=== PATIENT | female | born 1945 | race Caucasian/White ===

== ENCOUNTER 2022-02-11 17:29 | Emergency (ER) | payer BC ==
[2022-02-11] MEDS ORDERED: Diphtheria,Pertussis(Acell),Tetanus Vaccine 0.5 ML Syringe IM ONE (19:20)
== END 2022-02-11 19:35 | disposition home or self-care (01) ==
LOC: FB.ED 17:29
DX: S06.0X0A Concussion without loss of consciousness, initial encounter (principal); S01.21XA Laceration without foreign body of nose, initial encounter; Z88.2 Allergy status to sulfonamides; Z23 Encounter for immunization; W01.0XXA Fall on same level from slipping, tripping and stumbling without subsequent striking against object, initial encounter
CPT/HCPCS: 12013; 70450; 90471; 90715; 99283-25

== ENCOUNTER 2022-04-28 10:06 | Emergency (ER) | payer MEDICARE ==
[2022-04-28] MEDS ORDERED: Losartan 50 MG Tab PO ONE (10:27)
[2022-04-28] MEDS ORDERED: Metoprolol Tartrate 50 MG Tab PO ONE (10:28)
[2022-04-28 10:46] LABS: ESTIMATED GFR 67 mL/min (>60)
== END 2022-04-28 11:38 | disposition home or self-care (01) ==
LOC: FB.ED 10:06
DX: I10 Essential (primary) hypertension (principal); E87.1 Hypo-osmolality and hyponatremia; Z88.2 Allergy status to sulfonamides
CPT/HCPCS: 36415; 80048; 99283; A9270

== ENCOUNTER 2024-03-22 04:46 | Emergency (ER) | payer MEDICARE ==
[2024-03-22] MEDS: Sodium Chloride 0.9% 10 ML Syringe FLUSH PRN (05:05)
[2024-03-22] MEDS: Ondansetron 4 MG/2 ML SDV IVPUSH ONE (05:16)
[2024-03-22 05:17] LABS: BASOPHILS ABSOLUTE AUTO 0.2 x10-3/uL (0.0-0.1); BASOPHILS PERCENT AUTO 1.2 % (0.2-1.5); EOSINOPHILS ABSOLUTE AUTO 0.4 x10-3/uL (0.0-0.8); EOSINOPHILS PERCENT AUTO 3.3 % (0.6-8.1); HEMATOCRIT 39.4 % (34.2-48.2); LYMPHOCYTES ABSOLUTE AUTO 5.3 x10-3/uL (1.0-4.4); LYMPHOCYTES PERCENT AUTO 39.5 % (18.4-52.1); MEAN CORPUSCULAR HEMOGLOBIN 28.8 pg (23.9-33.9); MEAN CORPUSCULAR HGB CONC 32.9 g/dL (31.9-34.8); MEAN CORPUSCULAR VOLUME 87.4 fL (76.7-100.5); MEAN PLATELET VOLUME 8.5 fL (7.1-12.4); MONOCYTES ABSOLUTE AUTO 0.9 x10-3/uL (0.3-1.0); NEUTROPHILS ABSOLUTE AUTO 6.6 x10-3/uL (1.5-6.3); PLATELET COUNT,PLT 347 x10(3)uL (151-488); RED BLOOD CELL COUNT 4.51 x10(6)uL (3.60-5.20); WHITE BLOOD CELL COUNT,WBC 13.4 x10-3/uL (3.0-10.3)
[2024-03-22] MEDS: Morphine 2 MG/ML SYRINGE IVPUSH ONE ×2 (05:17→07:50)
[2024-03-22 05:25] LABS: A/G RATIO 0.7; ALANINE AMINOTRANSFERASE,ALT 29 U/L (12-36); ALBUMIN 3.1 g/dL (3.2-4.6); ALKALINE PHOSPHATASE 104 IU/L (56-112); ASPARTATE AMNIOTRANSFERASE,AST 19 IU/L (5-25); BILIRUBIN TOTAL 0.5 mg/dL (0.1-1.3); BLOOD UREA NITROGEN,BUN 16 mg/dL (7-18); BUN/CREATININE RATIO 13.3 (9-20); CALCIUM 8.9 mg/dL (8.6-10.2); CARBON DIOXIDE,CO2 23 mmol/L (21-32); CHLORIDE,CL 101 mmol/L (100-110); CREATININE 1.2 mg/dL (0.55-1.02); EST CRCL DRUG DOSING (CG) 34.44 mL/min; ESTIMATED GFR 47 mL/min (>60); GLUCOSE RANDOM 132 mg/dL (80-116); PROTEIN TOTAL,TP 7.3 g/dL (6.0-8.0); SODIUM,NA 136 mmol/L (135-145)
[2024-03-22] MEDS: Iopamidol 755 Mg/ML 100 ML Bottle IV SCH (06:02)
[2024-03-22] MEDS: Sodium Chloride 0.9% 1,000 ML IV SCH (06:03)
[2024-03-22 07:30] LABS: BILIRUBIN,URINE NEGATIVE (NEGATIVE); GLUCOSE,URINE NORMAL (NORMAL); KETONES,URINE NEGATIVE (NEGATIVE); LEUKOCYTE ESTERASE,URINE NEGATIVE (NEGATIVE); NITRITE,URINE NEGATIVE (NEGATIVE); OCCULT BLOOD,URINE NEGATIVE (NEGATIVE); PROTEIN,URINE NEGATIVE (NEGATIVE); UROBILINOGEN,URINE NORMAL (NEGATIVE)
[2024-03-22 07:43] LABS: APPEARANCE,URINE CLEAR (CLEAR); BACTERIA,URINE RARE (NS); COLOR,URINE YELLOW (YELLOW); RBC,URINE 0-5 (0-5); SQUAMOUS EPITHELIAL CELLS,UR FEW (NS,R,O); WBC,URINE 0-5 (0-5)
== END 2024-03-22 07:58 | disposition home or self-care (01) ==
LOC: FB.ED 04:46
DX: R10.32 Left lower quadrant pain (principal); I10 Essential (primary) hypertension; K21.9 Gastro-esophageal reflux disease without esophagitis; J45.909 Unspecified asthma, uncomplicated; Z88.2 Allergy status to sulfonamides; Z79.899 Other long term (current) drug therapy
CPT/HCPCS: 36415; 74177; 80053; 81001; 83605; 83690; 85025; 86140; 96361; 96374; 96375; 96376; 99284; 99284-25; J2270; J2405; J3490; J7030; Q9967

== ENCOUNTER 2024-07-30 07:39 | Inpatient (IN) | payer MEDICARE ==
[2024-07-30] MEDS: Sodium Chloride 0.9% 10 ML Syringe FLUSH PRN (07:55)
[2024-07-30 08:30] LABS: BASOPHILS ABSOLUTE AUTO 0.1 x10-3/uL (0.0-0.1); BASOPHILS PERCENT AUTO 0.8 % (0.2-1.5); EOSINOPHILS ABSOLUTE AUTO 0.2 x10-3/uL (0.0-0.8); EOSINOPHILS PERCENT AUTO 1.5 % (0.6-8.1); HEMOGLOBIN 11.3 g/dL (11.4-15.5); LYMPHOCYTES ABSOLUTE AUTO 2.7 x10-3/uL (1.0-4.4); LYMPHOCYTES PERCENT AUTO 25.2 % (18.4-52.1); MEAN CORPUSCULAR HEMOGLOBIN 28.9 pg (23.9-33.9); MEAN CORPUSCULAR HGB CONC 33.3 g/dL (31.9-34.8); MEAN CORPUSCULAR VOLUME 86.7 fL (76.7-100.5); MEAN PLATELET VOLUME 8.6 fL (7.1-12.4); MONOCYTES ABSOLUTE AUTO 0.9 x10-3/uL (0.3-1.0); MONOCYTES PERCENT AUTO 8.2 % (4.4-15.7); NEUTROPHILS PERCENT AUTO 64.3 % (30.8-76.2); PLATELET COUNT,PLT 303 x10(3)uL (151-488); RED BLOOD CELL COUNT 3.92 x10(6)uL (3.60-5.20); RED CELL DISTRIBUTION WIDTH 16.8 % (12.3-16.5); WHITE BLOOD CELL COUNT,WBC 10.8 x10-3/uL (3.0-10.3)
[2024-07-30 08:34] LABS: BLOOD UREA NITROGEN,BUN 25 mg/dL (7-18); BUN/CREATININE RATIO 13.9 (9-20); CALCIUM 9.4 mg/dL (8.6-10.2); CARBON DIOXIDE,CO2 29 mmol/L (21-32); CHLORIDE,CL 97 mmol/L (100-110); CREATININE 1.8 mg/dL (0.55-1.02); EST CRCL DRUG DOSING (CG) 22.96 mL/min; ESTIMATED GFR 29 mL/min (>60); GLUCOSE RANDOM 113 mg/dL (80-116); POTASSIUM,K 3.7 mmol/L (3.5-5.3); SODIUM,NA 136 mmol/L (135-145)
[2024-07-30 08:40] LABS: A/G RATIO 0.6; ALANINE AMINOTRANSFERASE,ALT 23 U/L (12-36); ALBUMIN 2.8 g/dL (3.2-4.6); ALKALINE PHOSPHATASE 108 IU/L (56-112); ASPARTATE AMNIOTRANSFERASE,AST 20 IU/L (5-25); BILIRUBIN TOTAL 0.4 mg/dL (0.1-1.3); PROTEIN TOTAL,TP 7.5 g/dL (6.0-8.0)
[2024-07-30 08:46] LABS: C-REACTIVE PROTEIN 2.55 mg/dL (<0.50)
[2024-07-30 09:03] LABS: LACTIC ACID 1.5 mmol/L (0.4-2.0)
[2024-07-30] MEDS: Sodium Chloride 0.9% 1,000 ML IV ONE (09:10)
[2024-07-30] MEDS: methylPREDNISolone Sodium Succinate 125 MG/2 ML SDV IVPUSH ONE (09:11)
[2024-07-30] MEDS: cefTRIAXone 1 GM Vial IVPUSH ONE (09:25)
[2024-07-30] MEDS: Azithromycin 500 MG Tab PO ONE (09:58)
[2024-07-30] MEDS: Piperacillin/Tazobactam 4.5 GM in Sodium Chloride 0.9% 100 ML IV ONE (11:35)
[2024-07-30] MEDS: Piperacillin/Tazobactam 4.5 GM in Sodium Chloride 0.9% 100 ML IV SCH ×2 (12:35→15:41)
[2024-07-30] MEDS ORDERED: QUEtiapine 25 MG Tab PO PRN (19:25)
[2024-07-30] MEDS ORDERED: hydrOXYzine Pamoate 25 MG Cap PO PRN (19:25)
[2024-07-30] MEDS ORDERED: Meclizine 25 MG Tab PO PRN (19:25)
[2024-07-30] MEDS ORDERED: Ondansetron 4 MG Tab.DIS PO PRN (19:38)
[2024-07-30] MEDS: methylPREDNISolone Sodium Succinate 125 MG/2 ML SDV IVPUSH SCH (20:07)
[2024-07-30] MEDS: Carboxymethylcellulose Sodium 0.5% Ophth Soln 15 ML Bottle EYEBOTH SCH (20:47)
[2024-07-30] MEDS: Sennosides/Docusate Sodium 50-8.6 MG Tab PO SCH (20:47)
[2024-07-30] MEDS: Pravastatin 20 MG Tab PO SCH (20:47)
[2024-07-30] MEDS: Budesonide 0.5 MG/2 ML Neb Susp INH SCH (20:48)
[2024-07-30] MEDS: Melatonin 3 MG Tab PO SCH (20:48)
[2024-07-30] MEDS: Albuterol 0.083% 2.5 MG/3 ML Neb Soln INH SCH (20:48)
[2024-07-30] MEDS: Metoprolol Tartrate 50 MG Tab PO SCH (20:57)
[2024-07-30] MEDS: Amiodarone 200 MG Tab PO SCH (20:58)
[2024-07-30] MEDS ORDERED: Non-Formulary Medication 1 Each (Formoterol Fumarate [Formoterol Fumarate] 20 MCG/2 ML Via INH SCH (21:00)
[2024-07-31 06:08] LABS: BLOOD UREA NITROGEN,BUN 28 mg/dL (7-18); BUN/CREATININE RATIO 15.6 (9-20); CALCIUM 9.1 mg/dL (8.6-10.2); CARBON DIOXIDE,CO2 28 mmol/L (21-32); CHLORIDE,CL 97 mmol/L (100-110); CREATININE 1.8 mg/dL (0.55-1.02); EST CRCL DRUG DOSING (CG) 22.96 mL/min; ESTIMATED GFR 29 mL/min (>60); GLUCOSE RANDOM 168 mg/dL (80-116); SODIUM,NA 134 mmol/L (135-145)
[2024-07-31 06:16] LABS: HEMATOCRIT 29.4 % (34.2-48.2); HEMOGLOBIN 9.9 g/dL (11.4-15.5); LYMPHOCYTES ABSOLUTE AUTO 1.2 x10-3/uL (1.0-4.4); LYMPHOCYTES PERCENT AUTO 17.1 % (18.4-52.1); MEAN CORPUSCULAR HGB CONC 33.7 g/dL (31.9-34.8); MEAN CORPUSCULAR VOLUME 85.9 fL (76.7-100.5); MEAN PLATELET VOLUME 8.4 fL (7.1-12.4); MONOCYTES ABSOLUTE AUTO 0.1 x10-3/uL (0.3-1.0); MONOCYTES PERCENT AUTO 1.5 % (4.4-15.7); NEUTROPHILS ABSOLUTE AUTO 5.9 x10-3/uL (1.5-6.3); NEUTROPHILS PERCENT AUTO 81.4 % (30.8-76.2); PLATELET COUNT,PLT 243 x10(3)uL (151-488); RED BLOOD CELL COUNT 3.42 x10(6)uL (3.60-5.20); RED CELL DISTRIBUTION WIDTH 16.5 % (12.3-16.5); WHITE BLOOD CELL COUNT,WBC 7.2 x10-3/uL (3.0-10.3)
[2024-07-31] MEDS: Pantoprazole 40 MG Tab.CR PO SCH (06:30)
[2024-07-31 06:40] LABS: C-REACTIVE PROTEIN 2.51 mg/dL (<0.50)
[2024-07-31] MEDS ORDERED: Non-Formulary Medication 1 Each (Omeprazole [Omeprazole] 40 MG Cap.Cr) PO SCH (07:30)
[2024-07-31] MEDS ORDERED: Revefenacin 175 MCG/3 ML Neb Soln INH SCH (07:38)
[2024-07-31] MEDS: Folic Acid/Vit B Complix And C 1 Tablet PO SCH (08:29)
[2024-07-31] MEDS: Cholecalciferol (Vitamin D3) 25 MCG Tab PO SCH (08:29)
[2024-07-31] MEDS: Cholecalciferol (Vitamin D3) 5,000 UNIT Cap PO SCH (08:29)
[2024-07-31] MEDS: Revefenacin 175 MCG/3 ML Neb Soln INH SCH ×2 (08:32→09:19)
[2024-07-31] MEDS: Furosemide 20 MG/2 ML VIAL IVPUSH SCH (10:27)
[2024-07-31] MEDS: Calcium Acetate 667 MG Cap PO SCH (11:23)
[2024-07-31] MEDS: Heparin Sodium 5,000 Units/ML Vial IVPUSH ONE (12:35)
[2024-07-31] MEDS: Heparin Sodium/0.45% NaCl 25,000 UNITS/500 ML BAG IV SCH (12:42)
== END 2024-07-31 19:24 | DRG 177 ==
LOC: FB.ED 07:39 → FB.MS 11:07
PROVIDERS: ADMIT Family Medicine; ATTEND Internal Medicine
DX: J69.0 Pneumonitis due to inhalation of food and vomit (principal); I10 Essential (primary) hypertension; J96.01 Acute respiratory failure with hypoxia; J82.83 Eosinophilic asthma; N18.4 Chronic kidney disease, stage 4 (severe); K21.9 Gastro-esophageal reflux disease without esophagitis; I12.9 Hypertensive chronic kidney disease with stage 1 through stage 4 chronic kidney disease, or unspecified chronic kidney disease; F15.90 Other stimulant use, unspecified, uncomplicated; H54.7 Unspecified visual loss; M19.90 Unspecified osteoarthritis, unspecified site; J18.9 Pneumonia, unspecified organism; E78.5 Hyperlipidemia, unspecified; J47.9 Bronchiectasis, uncomplicated; R79.89 Other specified abnormal findings of blood chemistry; Z88.2 Allergy status to sulfonamides; Z79.1 Long term (current) use of non-steroidal anti-inflammatories (NSAID); Z79.51 Long term (current) use of inhaled steroids; Z79.899 Other long term (current) drug therapy; Z79.02 Long term (current) use of antithrombotics/antiplatelets; Z79.2 Long term (current) use of antibiotics; Z86.73 Personal history of transient ischemic attack (TIA), and cerebral infarction without residual deficits; Z95.2 Presence of prosthetic heart valve; Z98.890 Other specified postprocedural states
CPT/HCPCS: 36415; 71045; 80053; 83605; 83735; 83880; 84484; 85025; 85379; 86140; 87040 ×2; 87428; 93005; 96374; 96375; 99285; J0696; J2919; 80048; 85730; 93306; 94640; 99223; 99238; A9270-GY; J1644; J1940; J2543; J7030; J7613; J7677